=== PATIENT | female | born 1955 | race Two or more races ===

== ENCOUNTER → 2017-09-18 | Outpatient (CLI) | payer BC, OTHER | LOC: CIMAGING 10:13 | PROVIDERS: ATTEND Internal Medicine | DX: J43.2 Centrilobular emphysema (principal); J42 Unspecified chronic bronchitis; L40.9 Psoriasis, unspecified; Z72.0 Tobacco use ==

== ENCOUNTER → 2017-10-03 | Outpatient (CLI) | payer BC | LOC: CIMAGING 10:44 | PROVIDERS: ATTEND Internal Medicine | DX: Z12.31 Encounter for screening mammogram for malignant neoplasm of breast (principal) ==

== ENCOUNTER → 2017-11-20 | Outpatient (CLI) | payer BC | LOC: CIMAGING 12:54 | PROVIDERS: ATTEND Internal Medicine | DX: R92.8 Other abnormal and inconclusive findings on diagnostic imaging of breast (principal) ==